=== PATIENT | female | born 1940 | race Hispanic/Latino ===

== ENCOUNTER 2017-04-21 10:22 | Emergency (ER) | payer MEDICARE ==
[~2017-04-21] VITALS: Ht 152.4 cm; Wt 86.2 kg
--- NOTE | 2017-04-21 12:22 | Diagnostic Imaging Report ---
PROCEDURE: X-RAY CHEST, TWO VIEWS COMPARISON: None. INDICATIONS: LEFT SIDE CHEST AND BREAST PAIN FINDINGS: Lungs are well-inflated. Linear opacity in the lingula compatible with subsegmental atelectasis. No consolidation, pleural effusion, or pneumothorax. Asymmetric opacity along the periphery of the right midlung likely reflects summation of overlying soft tissues. Heart size is normal. No overt pulmonary edema. No acute osseous abnormality. Multilevel degenerative disc changes of the thoracic spine. CONCLUSION: No acute cardiopulmonary abnormality. Dictated by: Dewayne Bob M.D. on 04/21/2017 at 12:30 Electronically approved by: Dewayne Bob M.D. on 04/21/2017 at 12:30
[2017-04-21 12:44] LABS: BILIRUBIN,URINE NEGATIVE (NEGATIVE); CLARITY,URINE CLEAR (CLEAR); COLOR,URINE YELLOW (YELLOW); KETONES,URINE NEGATIVE (NEGATIVE); LEUKOCYTE ESTERASE ,URINE NEGATIVE (NEGATIVE); NITRITE,URINE NEGATIVE (NEGATIVE); PROTEIN,URINE DIPSTICK NEGATIVE (NEGATIVE); URINE UROBILINOGEN 0.2 mg/dL (0.2 - 1)
[2017-04-21 13:07] LABS: BASOPHILS % 0.4 % (0.0-1.0); EOSINOPHILS # (AUTO) 0.2 (0.0-0.4); EOSINOPHILS % 2.1 % (0.0-6.0); HEMATOCRIT 41.5 % (34.2-44.1); HEMOGLOBIN 13.9 g/dL (12.0-16.0); LYMPHOCYTES % 28.9 % (18.0-39.1); MEAN CORPUSCULAR HEMOGLOBIN 32.3 pg (28-32); MEAN CORPUSCULAR HGB CONC 33.5 g/dL (31-35); MEAN CORPUSCULAR VOLUME 96.3 fL (81-99); MONOCYTES # (AUTO) 0.7 (0.2-0.8); MONOCYTES % 10.3 % (4.4-11.3); NEUTROPHILS # (AUTO) 4.1 (2.1-6.9); NEUTROPHILS % 57.9 % (38.7-80.0); PLATELET COUNT 184 x10e3/uL (140-360); RED BLOOD COUNT 4.31 x10e6/uL (3.6-5.1); RED CELL DISTRIBUTION WIDTH 12.6 % (11.7-14.4)
[2017-04-21 13:08] LABS: BACTERIA,URINE FEW /HPF; EPITHELIAL CELLS,URINE FEW /LPF; RBC,URINE 0-5 /HPF (0-5)
[2017-04-21 13:26] LABS: ALBUMIN 3.7 g/dL (3.5-5.0); ALBUMIN/GLOBULIN RATIO 0.9 (0.8-2.0); ANION GAP 14.4 mmol/L (8-16); CALCIUM 9.5 mg/dL (8.4-10.2); CREATININE, SERUM 1.16 mg/dL (0.57-1.11); POTASSIUM 4.4 mmol/L (3.5-5.1)
[2017-04-21 13:32] LABS: CREATINE KINASE MB 1.1 ng/mL (0.00-5.00); TROPONIN I 0.023 ng/mL (0-0.300)
[2017-04-21 15:29] LABS: INR 0.97; PROTHROMBIN TIME 11.1 seconds (11.9-14.5)
[2017-04-21 16:32] VITALS: BP 128/63
== END 2017-04-21 16:40 | disposition home or self-care (01) ==
LOC: ER 10:22
DX: R07.89 Other chest pain (principal); R05 Cough; N39.0 Urinary tract infection, site not specified; G30.9 Alzheimer's disease, unspecified; F02.80 Dementia in other diseases classified elsewhere, unspecified severity, without behavioral disturbance, psychotic disturbance, mood disturbance, and anxiety; I10 Essential (primary) hypertension; E11.9 Type 2 diabetes mellitus without complications; E78.5 Hyperlipidemia, unspecified
CPT/HCPCS: 36415; 71020; 80053; 81001; 82550; 82553; 83880; 84484; 85025; 85610; 85730; 87086; 87186; 93005; 99283

== ENCOUNTER → 2018-05-29 | Day surgery (SDC) | payer MEDICARE, OTHER ==
[2018-05-10 12:34] LABS: BASOPHILS % 0.5 % (0.0-1.0); EOSINOPHILS # (AUTO) 0.2 (0.0-0.4); EOSINOPHILS % 2.3 % (0.0-6.0); HEMATOCRIT 44.1 % (34.2-44.1); HEMOGLOBIN 14.1 g/dL (12.0-16.0); LYMPHOCYTES # (AUTO) 2.6 (1.0-3.2); LYMPHOCYTES % 34.4 % (18.0-39.1); MEAN CORPUSCULAR HEMOGLOBIN 32.2 pg (28-32); MEAN CORPUSCULAR VOLUME 100.7 fL (81-99); MONOCYTES # (AUTO) 0.8 (0.2-0.8); MONOCYTES % 10.3 % (4.4-11.3); NEUTROPHILS # (AUTO) 3.9 (2.1-6.9); NEUTROPHILS % 52.2 % (38.7-80.0); PLATELET COUNT 168 x10e3/uL (140-360); RED BLOOD COUNT 4.38 x10e6/uL (3.6-5.1); RED CELL DISTRIBUTION WIDTH 12.4 % (11.7-14.4)
[~2018-05-29] MED LIST: ARICEPT5 MG PO; CARBIDOPA-LEVO1 EACH PO; FENTANYL CITRATE/PF 100MCG/2 ML INJ ONE; GABAPENTIN300 MG PO; HUMALOG100 UNIT/1; HYOSCYAMINE SULFATE 0.5 MG/ML INJ ONE; LANTUS 3ML100 UNITS/; LIDOCAINE HCL 2% LOCAL INJ 5 ML SDV VIAL INJ ONE; LOSARTAN POTASS25 MG; METOCLOPRAM5 MG/5 ML; METOCLOPRAMIDE HCL 10 MG/2ML VIAL ONE; MIDAZOLAM HCL 2 MG/2 ML VIAL ONE; NAMENDA10 MG; NEXIUM40 MG; PIOGLITAZONE HC45 MG PO; PROPOFOL IV EMULSION 10 MG/ML 50 ML VIAL ONE; SERTRALINE HCL100 MG PO; SIMVASTATIN40 MG PO; SUCRALFATE1 GM PO; TRADJENTA5 MG
--- OUTSIDE RECORDS SUMMARY | 2018-05-29 06:52 | XMS REPORT | Clinical Summary ---
Author Author [facility] Address Unknown Phone Unavailable Care Team Providers Care J2Ee Java Developer Name Role Phone Josh Welch MD PCP Allergies Comments Active Allergy Reactions Severity Noted Date Penicillins 04/15/2017 Medications No known medications Active Problems Not on file Social History Date Tobacco Use Types Packs/Day Years Used Never Smoker Smokeless Tobacco: Never Used Alcohol Use Drinks/Week oz/Week Comments No Sex Assigned at Date Recorded Not on file Industry Job Start Date Occupation Not on file Not on file Not on file Travel End Travel History Travel Start No recent travel history available. Last Filed Vital Signs Not on file Plan of Treatment Not on file Results Not on fileafter 05/28/2017 Insurance Payer Benefit Subscriber ID Type Phone Address Plan / Group MEDICAID MEDICAID xxxxxxxxx Medicaid [facility] MEDICARE [facility] DUAL xxxxxxxxx HMO COMPLETE MCR Advance Directives Patient has advance care planning documents on file. For more information, destin cary contact: Ross Goodman [address] [place] [address]
--- OUTSIDE RECORDS SUMMARY | 2018-05-29 06:52 | XMS REPORT ---
[facility] Address Unknown Phone Unavailable Care Team Providers Care Jack Spinner Name Role Phone NOEMI LORD Unavailable Unavailable Problems This patient has no known problems. Allergies, Adverse Reactions, Alerts This patient has no known allergies or adverse reactions. Medications This patient has no known medications. Results Test Description Test Time Test Comments Text Results Atomic Results Result Comments CHEST 2 VIEWS [place] [address] Patient Name: DAWSON MOORE V MR #: [id number] : 1940 Age/Sex: 76/F Req #: [id number] Adm Physician: Ordered by: JULES GARCIA PHOTO BOOTH OPERATOR Report #: [id number] Location: ER Room/Bed: Procedure: [id number] DX/CHEST 2 VIEWS Exam Date: 04/21/17 Exam Time: 1140 REPORT STATUS: Signed PROCEDURE: X-RAY CHEST, TWO VIEWS COMPARISON: None. INDICATIONS: LEFT SIDE CHEST AND BREAST PAIN FINDINGS: Lungs are well-inflated. Linear opacity in the lingula compatible with subsegmental atelectasis. No consolidation, pleural effusion, or pneumothorax. Asymmetric opacity along the periphery of the right midlung likely reflects summation of overlying soft tissues. Heart size is normal. No overt pulmonary edema. No acute osseous abnormality. Multilevel degenerative disc changes of the thoracic spine. CONCLUSION: No acute cardiopulmonary abnormality. Dictated by: Veena Reyes M.D. on 04/21/2017 at 12:30 Electronically approved by: Veena Reyes M.D. on 04/21/2017 at 12:30 Dictated By: VEENA REYES MD 1230 Transcribed By: TERRENCE on 04/21/17 1230 COPY TO: JULES GARCIA NP
[2018-05-29 12:13] VITALS: BP 134/75
--- NOTE | 2018-05-29 13:09 | Operative Report ---
DATE OF PROCEDURE: May 29, 2018 REFERRING PHYSICIAN: Dr. Eligio Welch PROCEDURES PERFORMED 1. Esophagogastroduodenoscopy with biopsies. 2. Colonoscopy with polypectomy. INDICATIONS FOR EGD: Excessive belching, nausea. INDICATIONS FOR COLONOSCOPY: Colorectal cancer screening. MEDICATION: Patient was done under MAC. Please see anesthesiologist's note. PROCEDURE: With the patient in the left lateral decubitus position, the flexible fiberoptic Olympus gastroscope was introduced into the esophagus under direct visualization without any difficulty. There was some patchy erythema noted in the distal esophagus. The scope was then advanced with ease into the stomach, and a large amount of retained undigested food was noted in the stomach precluding visualization of the majority of the fundus and the body of the stomach along the greater curvature. The mucosa overlying the antrum revealed some diffuse erythema and mild to moderate edema, and biopsies were obtained and sent to stain for H. pylori. Two minute nodules were noted in the distal body lesser curve just above the incisura, and those were biopsied. One biopsy site was hemoclipped due to persistent bleeding. The pylorus was of normal contour and shape. It was intubated with ease, and the scope was advanced all the way to the 2nd portion of the duodenum. The scope was then withdrawn slowly. Mucosa overlying the proximal 2nd portion and the duodenal bulb appeared to be within normal limits. The scope was then withdrawn back into the stomach and retroflexed. Only a small part of the fundus was visualized as the rest was covered with retained undigested food. The cardia appeared to be within normal limits. The scope was then straightened out. It was subsequently withdrawn. Patient tolerated the procedure well. IMPRESSION 1. Distal esophagitis, mild. 2. Gastritis, biopsied. Biopsies sent to stain for H. pylori. 3. Large amount of retained undigested foodstuff in the stomach precluding visualization of the majority of the fundus as well as the body of the stomach along the greater curvature. 4. Minute nodules x2, distal body lesser curve just above incisura, biopsied. One biopsy site was hemoclipped due to persistent bleeding. PLAN: Follow up histology. Initiate Protonix 40 mg 1 p.o. q.a.m. a.c. and Reglan 10 mg 1 p.o. a.c. t.i.d. and nightly. Patient will need to have a repeat EGD to optimally visualize the gastric mucosa after the retained food has cleared the stomach. The patient was then turned around. After adequate lubrication of the anal canal, a flexible fiberoptic Olympus colonoscope was inserted into the rectum with ease and advanced all the way to the cecum. There was a moderate amount of retained stools in the cecum and proximal ascending colon. One polyp was hot biopsied from the ascending colon, and the polypectomy site was hemoclipped x2. Two polyps were snared from the transverse colon. One polyp was snared from the descending colon. Some diverticular disease was noted in the sigmoid colon. The rectum grossly appeared to be within normal limits. The scope was then retroflexed into the distal rectum, and small internal hemorrhoids were noted, none of which was actively bleeding. The scope was then straightened out. It was subsequently withdrawn. Patient tolerated the procedure well. IMPRESSION 1. Retained stools in cecum and proximal ascending colon. 2. Ascending colon polyp, hot biopsied, site hemoclipped x2. 3. Transverse colon polyps x2, snared. 4. Descending colon polyp x1, snared. 5. Diverticulosis. 6. Internal hemorrhoids, none actively bleeding. PLAN: Follow up histology. Patient will need a followup colonoscopy later this year after a better prep to optimally visualize the cecum and the ascending colon. Job#: [id number] cc:ELIGIO WELCH MD
== END | disposition home or self-care (01) ==
LOC: ENDO 06:50
PROVIDERS: ATTEND Internal Medicine Gastroenterology
DX: Z12.11 Encounter for screening for malignant neoplasm of colon (principal); D12.3 Benign neoplasm of transverse colon; D12.4 Benign neoplasm of descending colon; K29.00 Acute gastritis without bleeding; K29.50 Unspecified chronic gastritis without bleeding; K21.9 Gastro-esophageal reflux disease without esophagitis; K31.89 Other diseases of stomach and duodenum; K59.00 Constipation, unspecified; K57.30 Diverticulosis of large intestine without perforation or abscess without bleeding; K64.8 Other hemorrhoids; B96.81 Helicobacter pylori [H. pylori] as the cause of diseases classified elsewhere; E11.9 Type 2 diabetes mellitus without complications; N39.0 Urinary tract infection, site not specified; I10 Essential (primary) hypertension; E78.00 Pure hypercholesterolemia, unspecified; R06.09 Other forms of dyspnea; R42 Dizziness and giddiness; F41.9 Anxiety disorder, unspecified; F32.9 Major depressive disorder, single episode, unspecified; Z88.0 Allergy status to penicillin; Z01.810 Encounter for preprocedural cardiovascular examination; Z01.812 Encounter for preprocedural laboratory examination; Z79.4 Long term (current) use of insulin; Z68.41 Body mass index [BMI] 40.0-44.9, adult
CPT/HCPCS: 36415 ×2; 43239; 45384; 45385; 82948; 85025; 93005; J1980; J2001; J2250; J2704; J2765; 45378

== ENCOUNTER → 2018-08-21 | Day surgery (SDC) | payer OTHER ==
[2018-08-18 11:03] LABS: BASOPHILS % 0.3 % (0.0-1.0); EOSINOPHILS # (AUTO) 0.1 (0.0-0.4); EOSINOPHILS % 1.7 % (0.0-6.0); HEMATOCRIT 40.6 % (34.2-44.1); HEMOGLOBIN 13.2 g/dL (12.0-16.0); LYMPHOCYTES # (AUTO) 1.8 (1.0-3.2); LYMPHOCYTES % 27.4 % (18.0-39.1); MEAN CORPUSCULAR HEMOGLOBIN 31.7 pg (28-32); MEAN CORPUSCULAR HGB CONC 32.5 g/dL (31-35); MEAN CORPUSCULAR VOLUME 97.4 fL (81-99); MONOCYTES # (AUTO) 0.7 (0.2-0.8); NEUTROPHILS # (AUTO) 3.9 (2.1-6.9); NEUTROPHILS % 59.3 % (38.7-80.0); PLATELET COUNT 145 x10e3/uL (140-360); RED BLOOD COUNT 4.17 x10e6/uL (3.6-5.1); RED CELL DISTRIBUTION WIDTH 12.5 % (11.7-14.4)
[~2018-08-21] MED LIST changes: -LIDOCAINE HCL 2% LOCAL INJ 5 ML SDV VIAL INJ ONE; -METOCLOPRAMIDE HCL 10 MG/2ML VIAL ONE; +SIMETHICONE 40 MG/0.6 ML BTL ONE
--- OUTSIDE RECORDS SUMMARY | 2018-08-21 07:26 | XMS REPORT ---
[facility] Address Unknown Phone Unavailable Care Team Providers Care Ophthalmic Surgeon Name Role Phone NOEMI LORD Unavailable Unavailable Problems This patient has no known problems. Allergies, Adverse Reactions, Alerts This patient has no known allergies or adverse reactions. Medications This patient has no known medications. Results Test Description Test Time Test Comments Text Results Atomic Results Result Comments CHEST 2 VIEWS [place] [address] Patient Name: DAWSON MOORE V MR #: [id number] : 1940 Age/Sex: 76/F Req #: [id number] Adm Physician: Ordered by: JULES GARCIA AMMONIA WORKER Report #: [id number] Location: ER Room/Bed: Procedure: [id number] DX/CHEST 2 VIEWS Exam Date: 04/21/17 Exam [...]
[2018-08-21 11:30] VITALS: BP 127/66
--- NOTE | 2018-08-21 12:01 | Operative Report ---
DATE OF PROCEDURE: 08/21/2018 SURGEON: Anurag Spears MD PROCEDURE: Esophagogastroduodenoscopy with biopsies and colonoscopy with polypectomy. INDICATIONS FOR EGD: Retained food in stomach on previous EGD. INDICATION FOR COLONOSCOPY: Suboptimal prep on previous colonoscopy, rule out synchronous colorectal neoplasm. MEDICATIONS: The patient was done under MAC, please see anesthesiologist's note. PROCEDURE IN DETAIL: With the patient in left lateral decubitus position, flexible fiberoptic Olympus gastroscope was introduced into the esophagus under direct visualization without any difficulty. Minute nodules were noted in the esophagus about 26 cm from the incisors and they were partially excised with the cold biopsy forceps. The scope was then advanced with ease into the stomach. Mucosa overlying the antrum and the body revealed some patchy erythema. A minute polyp was noted in the distal body and that was partially excised with a cold biopsy forceps and site was hemoclipped due to transient bleeding. Some patchy but prominent nodularity was noted in the upper body along the lesser curvature and biopsies were obtained. The pylorus was of normal contour and shape, it was intubated with ease and the scope was advanced all the way to the second portion of the duodenum. The scope was then withdrawn slowly. Mucosa overlying the proximal second portion and the duodenal bulb appeared to be within normal limits. The scope was then withdrawn back into the stomach and retroflexed and mucosa overlying the fundus and cardia appeared to be within normal limits. The scope was then straightened out, it was subsequently withdrawn. The patient tolerated the procedure well. IMPRESSION: 1. Minute nodules, esophagus, approximately 26 cm from the incisors, partially excised with the cold biopsy forceps. 2. Gastritis, mild. 3. Minute polypoid lesion distal body anterior wall, biopsied, site hemoclipped due to persistent bleeding. 4. Patchy but prominent nodularity upper body, lesser curvature, biopsies obtained. PLAN: Follow up histology. Continue Nexium 40 mg one p.o. q.a.m. a.c. and Carafate 1 g p.o. a.c. t.i.d. and at bedtime. PROCEDURE IN DETAIL: The patient was then turned around after adequate lubrication of the anal canal. A flexible fiberoptic Olympus colonoscope was inserted into the rectum with ease and advanced all the way to the cecum. Mucosa overlying the cecum appeared to be within normal limits. One polyp was hot biopsied from the ascending colon. The transverse appeared to be within normal limits. One polyp was snared from the descending colon. Diverticular disease was noted to involve the sigmoid colon. One polyp was hot biopsied from the sigmoid colon. One polyp was snared from the rectum. The scope was then retroflexed into the distal rectum and small internal hemorrhoids were noted, none of which was actively bleeding. The scope was then straightened out, it was subsequently withdrawn. The patient tolerated the procedure well. IMPRESSION: 1. Ascending colon polyp, hot biopsied. 2. Descending colon polyp, snared. 3. Diverticulosis. 4. Sigmoid colon polyp, hot biopsied. 5. Rectal polyp, snared. 6. Internal hemorrhoids, none actively bleeding. PLAN: Follow up histology. Initiate high-fiber, low-fat diet. Initiate high-fiber supplement. The patient might benefit from a followup colonoscopy in 3 years. Anurag Spears MD [facility] [place][id number] cc: Josh Welch MD
== END | disposition home or self-care (01) ==
LOC: OR 07:24
PROVIDERS: ATTEND Internal Medicine Gastroenterology
DX: K21.9 Gastro-esophageal reflux disease without esophagitis (principal); D12.4 Benign neoplasm of descending colon; D12.8 Benign neoplasm of rectum; K31.7 Polyp of stomach and duodenum; K29.50 Unspecified chronic gastritis without bleeding; B96.81 Helicobacter pylori [H. pylori] as the cause of diseases classified elsewhere; K22.8 Other specified diseases of esophagus; K31.89 Other diseases of stomach and duodenum; K57.30 Diverticulosis of large intestine without perforation or abscess without bleeding; K64.8 Other hemorrhoids; I10 Essential (primary) hypertension; E78.5 Hyperlipidemia, unspecified; E11.9 Type 2 diabetes mellitus without complications; R06.02 Shortness of breath; F32.9 Major depressive disorder, single episode, unspecified; F41.9 Anxiety disorder, unspecified; Z88.0 Allergy status to penicillin; Z01.810 Encounter for preprocedural cardiovascular examination; Z01.812 Encounter for preprocedural laboratory examination; Z79.4 Long term (current) use of insulin
CPT/HCPCS: 36415 ×2; 43239; 45384; 45385; 82948; 85025; 93005; J1980; J2250; J2704; 45378